=== PATIENT | female | born 1980 | race Caucasian/White ===

== ENCOUNTER 2016-06-01 13:04 | Emergency (ER) | payer MEDICAID, OTHER ==
[~2016-06-01] VITALS: Wt 120.0 kg
[~2016-06-01 13:04] MED LIST: ALPR1TAB2 PO; HYDR-3720 PO; IBUP800T25 PO; MECL25TA2 PO; OMEP20CA9 PO
[2016-06-01] MEDS ORDERED: HYDROCODONE/APAP (10/325) TAB PO ONE (14:00)
[2016-06-01] MEDS ORDERED: AMOX1TAB10 PO (14:06)
[2016-06-01] MEDS ORDERED: HYDR-906 PO ×2 (14:06→14:07)
[2016-06-01] MEDS ORDERED: NAPR-260 PO (14:06)
--- NOTE | 2016-06-01 14:11 | ERD ---
ER Documentation Chief Complaint Date/Time DATE: 06/01/16 TIME: 14:09 Chief Complaint R SIDED DENTAL PAIN HPI This is a 36 year female who presents to the department today complaining of right-sided dental pain for the past 4 days. Patient states she has tried Tylenol and Aleve with no improvement in pain. States she is unable to make an appointment with her dentist as she has been here in the hospital with her daughter who is admitted. Denies any fevers or chills. ROS All systems reviewed and are negative except as per history of present illness. Medications Home Meds Active Scripts Hydrocodone/Acetaminophen ([place] 5-325 Tablet) 1 Each Tablet, 1 TAB PO Q6H Y for PAIN, #15 TAB Prov:LEATHA SHAW PA-C 06/01/16 Naproxen* (Naprosyn*) 500 Mg Tablet, 500 MG PO BID Y for PAIN AND/OR INFLAMMATION, #30 TAB Prov:LEATHA SHAW PA-C 06/01/16 Amoxicillin/Potassium Clav (Amox-Clav 875-125 mg Tablet) 875-125 mg Tab, 1 TAB PO BID for 10 Days, #20 TAB Prov:LEATHA SHAW PA-C 06/01/16 Omeprazole* (Prilosec*) 20 Mg Capsule.dr, 20 MG PO BID, #30 CAP Prov:DEBRA GORDON DO 12/06/15 Meclizine Hcl* (Antivert*) 25 Mg Tablet, 25 MG PO Q6H Y for DIZZINESS, #20 TAB Prov:DEBRA GORDON DO 12/06/15 Hydrocodone Bit-Acetaminophen* ([place]*) 7.5-325 Tablet, 1 TAB PO Q4H Y for PAIN , #14 TAB Prov:LEKKOS,APOSTOLOS A. DO 11/09/15 Ibuprofen* (Motrin*) 800 Mg Tab, 800 MG PO TID, #20 TAB Prov:LEKKOS,APOSTOLOS A. DO 11/09/15 Alprazolam* (Xanax*) 1 Mg Tab, 1 MG PO Q8H Y for ANXIETY, #10 TAB Prov:LEKKOS,APOSTOLOS A. DO 11/09/15 Discontinued Scripts Hydrocodone/Acetaminophen ([place] 5-325 Tablet) 1 Each Tablet, 15 TAB PO Q6H Y for PAIN, #7 TAB Prov:LEATHA SHAW Baldemar LUQUE 06/01/16 Allergies Allergies: Coded Allergies: Paroxetine (Verified Allergy, Unknown, RASH, 11/09/13) PMhx/Soc History of Surgery: No Anesthesia Reaction: No Hx Neurological Disorder: No Hx Respiratory Disorders: No Hx Cardiac Disorders: No Hx Psychiatric Problems: Yes (BIPOLAR, ANXIETY) Hx Miscellaneous Medical Probl: No Hx Alcohol Use: Yes (occasional) Hx Substance Use: Yes (marijuana) Hx Tobacco Use: No Physical Exam Vitals Vital Signs Date Time Temp Pulse Resp B/P Pulse Ox O2 Delivery O2 Flow Rate FiO2 06/01/16 13:09 98.0 109 20 157/79 99 Physical Exam Const: Obese, no acute distress Head: Atraumatic Eyes: Normal Conjunctiva ENT: Ears TMs normal. Nose no drainage. Throat no erythema no exudate. Poor dentition. Dental caries with evidence of decay upper and lower molars Neck: Full range of motion..~ No meningismus. Resp: Clear to auscultation bilaterally Cardio: Regular rate and rhythm, no murmurs Abd: Soft, non tender, non distended. Normal bowel sounds Skin: No petechiae or rashes Neur: Awake and alert Psych: Normal Mood and Affect Results 24 hrs Current Medications Medications (Trade) Dose Ordered Sig/Tanya Route PRN Reason Start Time Stop Time Status Last Admin Dose Admin Acetaminophen/ Hydrocodone Bitart ([place] (10/325)) 1 tab ONCE ONCE PO 06/01/16 14:00 06/01/16 14:01 DC 06/01/16 13:40 Procedures/MDM This is a 36-year-old female who presents to emergency department today for dental pain on the right side of her mouth. On physical exam patient does have evidence of dental caries on both her upper and lower molars as well as evidence of tooth decay. Patient will be given a prescription for a short course of [place] as well as Naprosyn and Augmentin for a possible infection. There does not appear to be an abscess formation at this time. The suspicion for sepsis or deep space infection. Patient is afebrile and otherwise well- appearing. Patient was instructed to follow-up with her dentist next week. Patient did indicate that she does have edematous however given her information for [facility] dentist. At this time the patient is stable for discharge and outpatient management. Patient should follow up with their PCP in the next 1-2 days. They may return to the emergency department sooner for any persistent or worsening of symptoms. Patient understood and agreed with the plan. Departure Diagnosis: Primary Impression: Pain, dental Condition: Fair Patient Instructions: Dental Pain Referrals: your dentist [facility] ([facility]) Additional Instructions: Call your primary care doctor TOMORROW for an appointment during the next 1-2 days.See the doctor sooner or return here if your condition worsens before your appointment time. Make appointment with her dentist Take antibiotics as prescribed Take [place] for severe pain otherwise take Naprosyn or Tylenol or Motrin LEATHA SHAW PA-C Jun 01, 2016 14:11
== END 2016-06-01 14:11 | disposition home or self-care (01) ==
LOC: FTE 13:04
DX: K08.89 Other specified disorders of teeth and supporting structures (principal)
CPT/HCPCS: 99284